=== PATIENT | female | born 1985 | race Caucasian/White ===

== ENCOUNTER → 2017-04-27 | Outpatient (REF) | payer OTHER | LOC: M LAB REF 09:25 | PROVIDERS: ATTEND Physician Assistant | DX: N39.0 Urinary tract infection, site not specified (principal) ==

== ENCOUNTER → 2019-03-22 | Outpatient (REF) | payer OTHER ==
[~2019-03-22] MED LIST: BUPR300T34 PO; D31000TA; METF500T13; SPRI28TA
== END ==
LOC: M LAB LCGH 12:11
DX: Z12.4 Encounter for screening for malignant neoplasm of cervix (principal)

== ENCOUNTER 2019-07-27 01:14 | Emergency (ER) | payer OTHER ==
[~2019-07-27] VITALS: Ht 172.7 cm; Wt 131.4 kg
[2019-07-27 01:15] VITALS: BP 139/69
[2019-07-27] MEDS ORDERED: ASPI81TA85 PO (01:24)
[2019-07-27] MEDS ORDERED: MAKE250I IM (01:24)
[2019-07-27] MEDS ORDERED: PREN29TA4 PO (01:24)
[2019-07-27] MEDS ORDERED: AUGM875T28 PO (01:45)
[2019-07-27] MEDS ORDERED: AUGMENTIN 875 MG TAB PO ONE (01:45)
== END 2019-07-27 02:11 | disposition home or self-care (01) ==
LOC: M ED 01:14
DX: K08.89 Other specified disorders of teeth and supporting structures (principal); Z79.82 Long term (current) use of aspirin; Z79.899 Other long term (current) drug therapy

== ENCOUNTER → 2019-09-28 | Outpatient (REF) ==
[~2019-09-28] MED LIST changes: +ASPI81TA85 PO; +AUGM875T28 PO; +MAKE250I IM; +PREN29TA4 PO
== END ==
LOC: M LAB REF 19:20
PROVIDERS: ATTEND Family Medicine
DX: O60.10X0 Preterm labor with preterm delivery, unspecified trimester, not applicable or unspecified (principal)

== ENCOUNTER 2022-04-22 12:48 | Emergency (ER) | payer BC, OTHER ==
[~2022-04-22] VITALS: Ht 172.7 cm; Wt 130.5 kg
[2022-04-22 12:48] VITALS: BP 152/71
[~2022-04-22 12:48] MED LIST changes: -ASPI81TA85 PO; +ASPI81TA86 PO; -BUPR300T34 PO; +BUPR300T92 PO
[2022-04-22 14:22] LABS: URINE PREG TEST NEGATIVE (NEGATIVE)
[2022-04-22] MEDS ORDERED: NS 1,000 ML IV ONE (14:35)
[2022-04-22] MEDS ORDERED: PHENAZOPYRIDINE 100 MG TAB PO ONE (14:35)
[2022-04-22] MEDS ORDERED: KETOROLAC 30 MG/ML 1ML VIAL IV ONE (14:35)
[2022-04-22] MEDS ORDERED: cefTRIAXone SOD 1 GM in D5W MINI-BAG PLUS 50 ML IV ONE (14:35)
[2022-04-22 15:31] LABS: BASO # 0.1 10^3/uL (0.0-0.2); BASO % 0.3 % (0.0-1.0); EOS % 0.1 % (0.0-3.0); HEMATOCRIT 42.9 % (36.0-47.0); HEMOGLOBIN 13.8 g/dl (12.0-15.5); LYMPH # 1.1 10^3/uL (1.5-5.0); LYMPH % 7.4 % (24.0-44.0); MEAN CORPUSCULAR HEMOGLOBIN 27.8 pg (27.0-33.0); MEAN CORPUSCULAR HGB CONC 32.2 g/dl (32.0-36.5); MEAN CORPUSCULAR VOLUME 86.3 fl (80.0-96.0); MONO % 6.2 % (2.0-8.0); NEUTROPHILS # 13.1 10^3/uL (1.5-8.5); NEUTROPHILS % 85.6 % (36.0-66.0); PLATELET COUNT, AUTOMATED 323 10^3/uL (150-450); RED BLOOD COUNT 4.97 10^6/uL (4.00-5.40); WHITE BLOOD COUNT 15.3 10^3/uL (4.0-10.0)
[2022-04-22] MEDS ORDERED: OMEP-173 PO (16:19)
[2022-04-22] MEDS ORDERED: CARA1TAB6 PO (16:19)
[2022-04-22] MEDS ORDERED: PANTOPRAZOLE 40MG VIAL IV ONE (16:30)
[2022-04-22] MEDS ORDERED: SUCRALFATE 1 GM TAB PO ONE (16:30)
[2022-04-22] MEDS ORDERED: CEFD300C41 PO (16:48)
[2022-04-22] MEDS ORDERED: PYRI1TAB5 PO (16:48)
== END 2022-04-22 17:25 | disposition home or self-care (01) ==
LOC: M ED 12:48
DX: N10 Acute pyelonephritis (principal); Z79.82 Long term (current) use of aspirin; Z79.899 Other long term (current) drug therapy
CPT/HCPCS: 80047; 81001; 84702; 84703; 85025; 87040; 87088; 87186; 96365; 96375; 99283; J0696; J1885

== ENCOUNTER 2023-07-13 06:24 | Emergency (ER) | payer BC ==
[~2023-07-13] VITALS: Ht 172.7 cm; Wt 131.4 kg
[~2023-07-13 06:24] MED LIST changes: +CARA1TAB6 PO; +CEFD300C41 PO; +OMEP-173 PO; +PYRI1TAB5 PO
[2023-07-13] MEDS ORDERED: KETOROLAC 30 MG/ML 1ML VIAL IV ONE (07:05)
[2023-07-13 07:29] LABS: BASO # 0.1 10^3/uL (0.0-0.2); BASO % 0.5 % (0.0-1.0); EOS # 0.2 10^3/uL (0.0-0.5); EOS % 2.2 % (0.0-3.0); HEMATOCRIT 42.1 % (36.0-47.0); HEMOGLOBIN 13.7 g/dl (12.0-15.5); LYMPH # 1.8 10^3/uL (1.5-5.0); MEAN CORPUSCULAR HEMOGLOBIN 28.2 pg (27.0-33.0); MEAN CORPUSCULAR HGB CONC 32.5 g/dl (32.0-36.5); MEAN CORPUSCULAR VOLUME 86.8 fl (80.0-96.0); MONO # 0.5 10^3/uL (0.0-0.8); MONO % 5.1 % (2.0-8.0); NEUTROPHILS # 7.2 10^3/uL (1.5-8.5); NEUTROPHILS % 73.9 % (36.0-66.0); PLATELET COUNT, AUTOMATED 376 10^3/uL (150-450); RED BLOOD COUNT 4.85 10^6/uL (4.00-5.40); WHITE BLOOD COUNT 9.8 10^3/uL (4.0-10.0)
[2023-07-13 07:41] LABS: INR 1.01
[2023-07-13 07:42] LABS: PARTIAL THROMBOPLASTIN TIME 29.2 SECONDS (24.8-34.2)
[2023-07-13 08:28] LABS: HCG, SERUM QUALITATIVE NEGATIVE (NEGATIVE)
[2023-07-13] MEDS ORDERED: cefTRIAXone SOD 1 GM in D5W MINI-BAG PLUS 50 ML IV ONE (10:05)
[2023-07-13] MEDS ORDERED: CIPR500T39 PO (10:07)
[2023-07-13 10:15] VITALS: BP 118/73; TEMP 98.2; O2SAT 96
[2023-07-13 11:36] LABS: GC DNA AMPLIFICATION NEGATIVE (NEGATIVE)
[2023-07-14] MEDS ORDERED: METR-265 PO (08:45)
== END 2023-07-13 10:36 | disposition home or self-care (01) ==
LOC: M ED 06:24
DX: N92.0 Excessive and frequent menstruation with regular cycle (principal); N10 Acute pyelonephritis; E78.5 Hyperlipidemia, unspecified; E28.2 Polycystic ovarian syndrome; Z79.2 Long term (current) use of antibiotics; Z79.82 Long term (current) use of aspirin; Z79.899 Other long term (current) drug therapy
CPT/HCPCS: 76830; 76856; 80047; 81001; 84703; 85025; 85610; 85730; 87086; 87210; 87661; 87810; 87850; 96374; 96375; 99284; J0696; J1885